=== PATIENT | male | born 1995 | race Caucasian/White ===

== ENCOUNTER 2016-10-03 13:10 | Emergency (ER) | payer BC ==
[2016-10-03 13:32] VITALS: BP 137/88; PULSE 82; RESP 16; TEMP 98.1; O2SAT 98
[2016-10-03] MEDS ORDERED: TDAP ADULT 0.5 ML INJ (BOOSTRIX) IM ONE (13:44)
[2016-10-03] MEDS ORDERED: CIPROFLOXACIN 500 MG TAB PO ONE (13:44)
--- NOTE | 2016-10-03 13:48 | EDPHY ---
H & P Stated Complaint: Stepped on nail yesterday, needs tetanus shot. Time Seen by Provider: 10/03/16 13:38 HPI/ROS: CHIEF COMPLAINT: Puncture wound HISTORY OF PRESENT ILLNESS: Patient is a 21-year-old man who comes to the emergency department requesting a tetanus shot. He stepped on a nail yesterday through the sole of his shoes. He cleaned it yesterday with water and alcohol and placed a sterile dressing. He was concerned about tetanus and so came for shot today. He states that it has been about 10 years since to receive tetanus. REVIEW OF SYSTEMS: Constitutional: denies: chills, fever, recent illness, recent injury EENTM: denies: blurred vision, double vision, nose congestion Respiratory: denies: cough, shortness of breath Cardiac: denies: chest pain, irregular heart rate, lightheadedness, palpitations Gastrointestinal/Abdominal: denies: abdominal pain, diarrhea, nausea, vomiting, blood streaked stools Genitourinary: denies: dysuria, frequency, hematuria, pain Musculoskeletal: denies: joint pain, muscle pain Skin: See HPI Neurological: denies: headache, numbness, paresthesia, tingling, dizziness, weakness Hematologic/Lymphatic: denies: blood clots, easy bleeding, easy bruising Immunologic/allergic: denies: HIV/AIDS, transplant EXAM: GENERAL: Well-appearing, well-nourished and in no acute distress. HEAD: Atraumatic, normocephalic. EYES: Pupils equal round and reactive to light, extraocular movements intact, sclera anicteric, conjunctiva are normal. ENT: TMs normal, nares patent, oropharynx clear without exudates. Moist mucous membranes. NECK: Normal range of motion, supple without lymphadenopathy or JVD. LUNGS: Breath sounds clear to auscultation bilaterally and equal. No wheezes rales or rhonchi. HEART: Regular rate and rhythm without murmurs, rubs or gallops. ABDOMEN: Soft, nontender, normoactive bowel sounds. No guarding, no rebound. No masses appreciated. BACK: No CVA tenderness, no spinal tenderness, step-offs or deformities EXTREMITIES: Normal range of motion, no pitting or edema. No clubbing or cyanosis. NEUROLOGICAL: Cranial nerves II through XII grossly intact. Normal speech, normal gait. 5/5 strength, normal movement in all extremities, normal sensation PSYCH: Normal mood, normal affect. SKIN: Small puncture wound to heal of left foot, already closed, no erythema or visible foreign body. Source: Patient Exam Limitations: No limitations - Personal History Current Tetanus/Diphtheria Vaccine: No Tetanus Vaccine Date: 2006 - Medical/Surgical History Hx Asthma: No Hx Chronic Respiratory Disease: No Hx Diabetes: No Hx Cardiac Disease: No Hx Renal Disease: No Hx Cirrhosis: No Hx Alcoholism: No Hx HIV/AIDS: No Hx Splenectomy or Spleen Trauma: No Other PMH: Myopericarditis-Inez 2016 - Family History Significant Family History: No pertinent family hx - Social History Smoking Status: Former smoker Alcohol Use: None Drug Use: None Constitutional: Initial Vital Signs Temperature (C) 36.7 C 10/03/16 13:30 Heart Rate 82 10/03/16 13:30 Respiratory Rate 16 10/03/16 13:30 Blood Pressure 137/88 H 10/03/16 13:30 O2 Sat (%) 98 10/03/16 13:30 O2 Delivery Mode Room Air Allergies/Adverse Reactions: No Known Allergies Allergy (Verified 10/03/16 13:32) Home Medications: Medication Instructions Recorded Ciprofloxacin [Cipro] 500 mg PO BID #14 tab 10/03/16 Heart Rate Medication 10/03/16 Htn Medication 10/03/16 Medical Decision Making ED Course/Re-evaluation: We will update the patient's tetanus and start him on clindamycin for pseudomonal coverage. He and his girlfriend understand agree with this plan. Differential Diagnosis: Partial list of the Differential diagnosis considered include but were not limited to; puncture wound, tetanus exposure, Pseudomonas exposure and although unlikely based on the history and physical exam, I also considered fracture, foreign body. I discussed these differential diagnoses and the plan with the patient as well as the usual and expected course. The patient understands that the diagnosis is provisional and that in medicine we are not always correct and that further workup is often warranted. Usual and customary warnings were given. All of the patient's questions were answered. The patient was instructed to return to the emergency department should the symptoms at all worsen or return, otherwise to followup with the physician as we discussed. - Data Points Medications Given: Discontinued Medications Ciprofloxacin (Cipro) 500 mg PO EDNOW ONE PRN Reason: Protocol Stop: 10/03/16 13:45 Last Admin: 10/03/16 13:58 Dose: 500 mg Diphtheria/Tetanus/Acell Pertussis (Boostrix) 0.5 ml IM .ONCE ONE Stop: 10/03/16 13:45 Last Admin: 10/03/16 13:59 Dose: 0.5 ml Departure - Departure Disposition: Home, Routine, Self-Care Clinical Impression: Puncture wound, Tetanus toxoid vaccination administered at current visit Condition: Fair Instructions: Puncture Wound (ED) Referrals: NONE *PRIMARY CARE P,. [Primary Care Provider] - As per Instructions Lea Jung DO [Doctor of Osteopathy] - As per Instructions Prescriptions: Ciprofloxacin [Cipro] 500 mg PO BID #14 tab
[2016-10-03] MEDS ORDERED: CIPROFLOXACIN 500 MG TAB ONE (13:53)
== END 2016-10-03 14:03 | disposition home or self-care (01) ==
DX: S91.332A Puncture wound without foreign body, left foot, initial encounter (principal); Z23 Encounter for immunization; Z87.891 Personal history of nicotine dependence; W18.41XA Slipping, tripping and stumbling without falling due to stepping on object, initial encounter